=== PATIENT | female | born 1985 | race Caucasian/White ===

== ENCOUNTER 2021-02-08 18:38 | Emergency (ER) | payer BC ==
[~2021-02-08 18:38] MED LIST: PRAMET FA TAB1 EA PO
[2021-02-08 19:46] LABS: HEMOGLOBIN 14.7 gm/dl (12.3-15.3); RED BLOOD COUNT 4.8 M/UL (4.00-5.10); WHITE BLOOD COUNT 4.3 K/UL (4.5-11.0)
[2021-02-08 20:23] LABS: BUN/CREATININE RATIO 11 (0-10)
== END 2021-02-08 21:35 | disposition home or self-care (01) ==
LOC: ER1 18:38
PROVIDERS: Physician Assistant
DX: U07.1 COVID-19 (principal)
CPT/HCPCS: 71045; 80053; 82550; 82553; 83874; 84484; 84703; 85025; 85379; 93005; 99284